=== PATIENT | male | born 1980 | race Two or more races ===

== ENCOUNTER 2024-04-22 07:29 | Emergency (ER) | payer BC ==
[~2024-04-22] VITALS: Ht 188 cm; Wt 81.8 kg
[2024-04-22 08:18] LABS: BASOPHILS % (AUTO) 0.3 % (0.0-2.0); EOSINOPHILS % (AUTO) 0.2 % (1.0-6.0); HEMATOCRIT 42.2 % (41-53); HEMOGLOBIN 14.4 g/dL (13.5-17.5); LYMPHOCYTES # (AUTO) 0.9 K/uL (1.0-4.8); LYMPHOCYTES % (AUTO) 6.6 % (22.0-44.0); MEAN CORPUSCULAR HEMOGLOBIN 31.7 pg (26.0-34.0); MEAN CORPUSCULAR HGB CONC 34.1 G/dL (31.0-37.0); MEAN CORPUSCULAR VOLUME 93 fL (80-100); MONOCYTES # (AUTO) 0.7 K/uL (0.1-1.0); MONOCYTES % (AUTO) 5.4 % (2.0-9.0); PLATELET COUNT (AUTO) 276 K/uL (150-450); RED BLOOD CELL COUNT(AUTO) 4.53 MIL/uL (4.50-5.90); RED CELL DISTRIBUTION WIDTH 12.4 % (11.5-14.5); WHITE BLOOD COUNT (AUTO) 13.8 K/uL (4.5-11.0)
[2024-04-22] MEDS: LORazepam 2 MG/ML VIAL IVP ONE ×2 (08:23→10:26)
[2024-04-22] MEDS: SODIUM CHLORIDE 0.9% 1,000 ML IV ONE (08:23)
[2024-04-22 08:29] LABS: ANION GAP 7 mmol/L (8-16); CALCIUM, TOTAL 9.4 mg/dL (8.8-10.5); CARBON DIOXIDE 28 mmol/L (22-29); CHLORIDE 96 mmol/L (98-107); CREATININE 1.14 mg/dL (0.60-1.30); GLOMERULAR FILTR. RATE CALC > 60 mL/min (>60); GLUCOSE,RANDOM 109 mg/dL (70-110); NEUTROPHILS % (AUTO) 87.5 % (40.0-70.0); POTASSIUM 3.5 mmol/L (3.5-5.1); SODIUM SERUM 131 mmol/L (136-145); UREA NITROGEN, BLOOD 15 mg/dL (7-18)
[2024-04-22 08:34] LABS: ALANINE AMINOTRANSFERASE 44 U/L (12-78); ALBUMIN 4.3 g/dL (3.4-5.0); ALKALINE PHOSPHATASE 107 U/L (46-116); ASPARTATE AMINOTRANSFERASE 24 U/L (15-37); BILIRUBIN,TOTAL 0.6 mg/dL (0.1-1.0); TOTAL PROTEIN, SERUM 8.1 g/dL (6.4-8.2); TROPONIN I-HIGH SENSITIVITY 15 ng/L (<76)
[2024-04-22 10:03] LABS: ALCOHOL, URINE DRUG SCREEN NEGATIVE (NEGATIVE); AMPHET/METH SCREEN,URINE POSITIVE (NEGATIVE); BARBITURATE SCREEN, URINE NEGATIVE (NEGATIVE); BENZODIAZEPINES SCREEN,URINE NEGATIVE (NEGATIVE); CANNABINOID SCREEN,URINE NEGATIVE (NEGATIVE); COCAINE SCREEN,URINE POSITIVE (NEGATIVE); METHADONE SCREEN, URINE NEGATIVE (NEGATIVE); OPIATE SCREEN,URINE POSITIVE (NEGATIVE); PHENCYCLIDINE SCREEN,URINE NEGATIVE (NEGATIVE)
[2024-04-22 12:03] LABS: TROPONIN I-HIGH SENSITIVITY 21 ng/L (<76)
[2024-04-22 13:01] VITALS: TEMP 97.8
[2024-04-22 13:13] VITALS: BP 145/82; PULSE 78; RESP 16; O2SAT 99
== END 2024-04-22 13:15 | disposition home or self-care (01) ==
LOC: EMS 07:33
DX: T50.991A Poisoning by other drugs, medicaments and biological substances, accidental (unintentional), initial encounter (principal); F41.9 Anxiety disorder, unspecified; F19.10 Other psychoactive substance abuse, uncomplicated; R44.0 Auditory hallucinations; R07.89 Other chest pain; Y92.89 Other specified places as the place of occurrence of the external cause
CPT/HCPCS: 99291; 96374; 96361; 80048; 80076; 84484; 85025; 36415; 71045; 93005; 96376; 80307; J2060